=== PATIENT | female | born 1940 | race American Indian/Alaskan Native ===

== ENCOUNTER 2021-12-05 08:08 | Emergency (ER) | payer MEDICARE ==
--- NOTE | 2021-12-05 08:15 | Emergency Department Report ---
ED CPR HPI - General Stated Complaint: CARDIAC ARREST Time Seen by Provider: 12/05/21 08:15 Source: EMS, old records reviewed (No previous medical record for review) Mode of arrival: Stretcher Limitations: Altered Mental Status, Physical Limitation - History of Present Illness Initial Comments: [id number]-year-old female with unknown past medical history presents to the hospital with unwitnessed cardiopulmonary arrest. Patient was found unresponsive by family members this a.m. EMS called at 7:34 AM and on scene at 7:46 AM. Patient was in asystole upon arrival. Patient was intubated with a 7.0 ET tube and received 3 doses of epi and remained in asystole throughout resuscitation efforts. Accu-Chek not obtained. Patient warm to touch upon ED arrival. Cardiopulmonary resuscitation efforts continued per family last seen responsive at [address]: home - Related Data Allergies Allergy/AdvReac Type Severity Reaction Status Date / Time Unable to Assess Allergy Unverified 12/05/21 08:22 ED Review of Systems ROS: Stated complaint: CARDIAC ARREST Other details as noted in HPI Comment: Unobtainable due to pts medical conditions ED Physical Exam - Other Other exam information: General: Unresponsive, cachectic appearing Head: Atraumatic Eyes: Pupils fixed unresponsive ENT: Orally intubated ET tube Neck: Normal appearance Chest: Breath sounds equal with bag, abdomen CV: Pulseless Abdomen: Soft, nondistended Back: Normal inspection Extremity: Normal inspection, left leg IO Neuro: GCS equals 3 Psych: Unresponsive Skin: Warm to touch ED Course - Reevaluation(s) Reevaluation #1: 12/05/21 Patient arrival to the ED at 8:05 AM. Resuscitation efforts continued. Difficulty obtaining Accu-Chek due to poor peripheral perfusion. 1 amp of D50 provided and 1 additional dose of epinephrine provided. Despite resuscitation efforts (total time greater than 30 minutes in asystole) patient remained pulseless and apneic. Time of 8:13 AM ED Medical Decision Making - Medical Decision Making 81-year-old female presents to the hospital in asystole after having an unwitnessed cardiopulmonary arrest at home. Patient remained in asystole despite greater than 30 minutes of resuscitation efforts and intervention. Time of 8:13 AM daughter in ed and informed of pt's Critical Care Time: Yes Critical care time in (mins) excluding proc time.: 15 Critical care attestation.: If time is entered above; I have spent that time in minutes in the direct care of this critically ill patient, excluding procedure time. ED Disposition Clinical Impression: Cardiopulmonary arrest Disposition: 20 Is pt being admited?: No Condition: Stable
[2021-12-05] MEDS ORDERED: EPINEPHrine 1 MG/10 ML SYRINGE ONE (23:50)
[2021-12-05] MEDS ORDERED: DEXTROSE 50% IN WATER (25GM) 50 ML VIAL IV ONE (23:50)
[2021-12-05] MEDS ORDERED: DOPamine DRIP 800 MG/D5W 250ML PreMix IV ONE (23:50)
[2021-12-05] MEDS ORDERED: SODIUM BICARB 8.4% 50 MEQ/50 ML SYRINGE IV ONE (23:50)
[2021-12-05] MEDS ORDERED: ATROPINE 0.1% (1 MG/10 ML) CARDIAC SYRINGE ONE (23:50)
== END 2021-12-05 18:50 ==
LOC: ED 08:08
DX: I46.9 Cardiac arrest, cause unspecified (principal)
CPT/HCPCS: 92950; 99285; J0171; J0461; J1265; J3490